=== PATIENT | female | born 1995 | race Caucasian/White ===

== ENCOUNTER 2019-11-10 16:23 | Outpatient (CLI) | payer OTHER ==
[~2019-11-10] VITALS: Ht 162.6 cm; Wt 88.1 kg
[2019-11-10 16:39] VITALS: BP 131/81
[2019-11-10] MEDS ORDERED: VIT PO (16:49)
[2019-11-10] MEDS ORDERED: MULTTAB20 PO (16:49)
[2019-11-10] MEDS ORDERED: MAGN400C PO (16:49)
--- NOTE | 2019-11-10 18:27 | IPNPDOC ---
Text Note Date of Service The patient was seen on 11/10/19. NOTE S: Few hours of feeling shaky and lightheaded. Good hydration and eating enough, per patient. Not overly hot. No chills. No cough or SOB. No N/V/D. No sick contacts. No palpatations. no ctx, VB, LOF. +FM. No headaches or visual changes. O: VSS WNL ABD: NT, gravid LE: NT, no edema SVE: closed, thick, high FHT: Cat 1, 130s, reactive, no decels, uterine irritability A/P: Fetus reassuring. No active labor. D/w patient that this could be from alone. However, she might be dehydrated, low sugar, viral or cardiac. VS,Fishbone, I+O VS, Fishbone, I+O Vital Signs Date Time Temp Pulse Resp B/P (MAP) Pulse Ox O2 Delivery O2 Flow Rate FiO2 11/10/19 16:39 99.0 92 18 131/81 (98) Meenakshi Claros MD Nov 10, 2019 18:27
[2019-11-10] MEDS ORDERED: FIOR1CAP PO (18:46)
== END 2019-11-10 18:00 | disposition home or self-care (01) ==
LOC: M LDO 16:23
PROVIDERS: ATTEND Obstetrics & Gynecology
DX: O26.893 Other specified pregnancy related conditions, third trimester (principal); Z3A.35 35 weeks gestation of pregnancy
CPT/HCPCS: 59025; 87081; G0378; G0463

== ENCOUNTER 2019-11-10 18:17 | Emergency (ER) | payer OTHER ==
[~2019-11-10] VITALS: Ht 162.6 cm; Wt 87.9 kg
[2019-11-10 18:17] VITALS: BP 131/75
[~2019-11-10 18:17] MED LIST: MAGN400C PO; MULTTAB20 PO; VIT PO
[2019-11-10] MEDS ORDERED: FIOR1CAP PO (18:46)
== END 2019-11-10 19:06 | disposition left against medical advice (07) ==
LOC: M ED 18:17
DX: Z53.21 Procedure and treatment not carried out due to patient leaving prior to being seen by health care provider (principal)

== ENCOUNTER 2019-11-26 11:13 | Inpatient (IN) | payer OTHER ==
[~2019-11-26] VITALS: Ht 162.6 cm; Wt 90.3 kg
[2019-11-26] VITALS (18 sets, daily range): BP systolic 125–151; BP diastolic 66–98
[~2019-11-26 11:13] MED LIST changes: +FIOR1CAP PO
[2019-11-26 12:34] LABS: HEMATOCRIT 36.4 % (36.0-47.0); HEMOGLOBIN 12.7 g/dl (12.0-15.5); MEAN CORPUSCULAR HEMOGLOBIN 31.1 pg (27.0-33.0); MEAN CORPUSCULAR HGB CONC 34.9 g/dl (32.0-36.5); PLATELET COUNT, AUTOMATED 181 10^3/uL (150-450); RED BLOOD COUNT 4.09 10^6/uL (4.00-5.40); WHITE BLOOD COUNT 11.3 10^3/uL (4.0-10.0)
[2019-11-26] MEDS ORDERED: TUMS500C PO (12:44)
[2019-11-26] MEDS ORDERED: GUAI1TAB15 PO (12:44)
[2019-11-26] MEDS ORDERED: PSEU30TA88 PO (12:44)
[2019-11-26 12:55] LABS: ALT/SGPT 16 U/L (12-78); BILIRUBIN,TOTAL 0.2 MG/DL (0.2-1.0); GLOMERULAR FILTRATION RATE > 60.0 (>60); LDH LACTATE DEHYDROGENASE 186 U/L (84-246); URIC ACID 7.5 MG/DL (2.6-6.0)
[2019-11-26 13:05] LABS: CREATININE,RANDOM URINE 38.1 MG/DL; TOTAL PROTEIN,RANDOM URINE 13.7 MG/DL (0.0-12.0)
[2019-11-26] MEDS ORDERED: miSOPROStol 25 MCG 1/4 TAB (S0191) PO ONE (15:00)
--- NOTE | 2019-11-26 17:16 | HPEPDOC ---
Obstetrical History & Physical General Date of Admission Nov 26, 2019 at 14:40 History of Present Illness S: Pili is a 24yo at 38wks gestation, EDC 10DEC2019 by LMP/1TUS, who is being admitted for IOL d/t Pre-Eclampsia. She reports +FM, denies LOF/VB/CTX. She reports a mild HUDSON, but has a hx of chronic HUDSON throughout this ; she denies RUQ pain or visual disturbances. GBS Negative, Varicella NI Excessive weight gain of 51lbs O Positive OB Hx: Primip Medical HUDSON: chronic HUDSON Surgical Hx: denies Social Hx: denies x3 Chief Complaint: Induction of labor Information Provided By: Patient Age: 24 : 1 Term: 0 Pre-term: 0 Abortions: 0 Livin Care Care: Good Care Dating Final EDC: Dec 10, 2019 Final EDC for Daily Update: Dec 10, 2019 Final EDC by: LMP Antepartum Course Height (inches): 64 Pre- weight (lbs.): 148 Admission Weight (lbs.): 199 Change in Weight (lbs.): 51 Past Medical History Past Obstetrical History : Past Obstetrical History: Primgravida Past Medical History Surgical History: Denies/None Family History Significant Family History: No pertinent family hx Social History Marital Status: Family situation: Spouse/partner home Psychosocial History: No pertinent psych hx * Smoker: non-smoker Alcohol: Denies Drugs: denies Imunizations Tdap status: current Allergies Coded Allergies: No Known Allergies (Unverified , 11/10/19) Medications Scheduled Butalb/Acetaminophen/Caffeine (Fioricet 50-300-40 mg Capsule) 1 Each Capsule, 1 CAP PO DAILY Magnesium Oxide (Magnesium) 400 Mg Capsule, 400 MG PO BID for constipation No122/Iron/Folic Acid ( Multi Tablet) 1 Each Tablet, 1 TAB PO DAILY [Vit B2] , 100 UNITS PO DAILY Scheduled PRN Calcium Carbonate (Tums) 200 Mg Tab.chew, 500 MG PO for HEARTBURN Pseudoephedrine HCl (Pseudoephedrine HCl) 30 Mg Tablet, 30 MG PO for CONGESTION Miscellaneous Medications Guaifen/Phenyleph/Acetaminophn (Tylenol Cold Head Congest Cplt) 1 Each Tablet, 1 EACH PO Physical Examination Physical Examination GENERAL: Alert and oriented times three. BREAST: . ABDOMEN: Gravid and non-tender to touch. FETUS: Is vertex (VTX) by sterile vaginal examination (SVE), fetus is vertex (VTX) by James. HEART RATE: Regular rate and rhythm. LUNGS: Observed nonlabored breathing EXTREMITIES: BLE 2+ edema. No clonus. Deep tendon reflexes + 1. Vital Signs/I&O O: VSS, afebrile, mild range Blood Pressures FHR 130s, moderate variability, + accels, no decels noted CTX: None VE: Closed/Long/High Vital Signs Date Time Temp Pulse Resp B/P (MAP) Pulse Ox O2 Delivery O2 Flow Rate FiO2 11/26/19 16:05 80 16 137/81 (99) 11/26/19 14:15 98.4 Laboratory Data 24H LABS Laboratory Tests 2 11/26/19 12:13: Nucleated Red Blood Cells % (auto) 0.0, Glomerular Filtration Rate > 60.0, Uric Acid 7.5H, Total Bilirubin 0.2, Aspartate Amino Transf (AST/SGOT) 23, Alanine Aminotransferase (ALT/SGPT) 16, Lactate Dehydrogenase 186 11/26/19 12:16: Urine Random Creatinine 38.1, Urine Random Total Protein 13.7H 11/26/19 14:44: Serology Scanned Report Hepatitis B Testing CBC/BMP Laboratory Tests 11/26/19 12:13 Pertinent Laboratoy Data Blood Type: O+ RBC Antibody Screen: Negative HIV: Negative Hepatitis B: Negative Rapid Plasma Reagin: Nonreactive Rubella: Immune Varicella: Nonreactive Chlamydia/Gonorrhea: Negative Group B Streptococcus: Negative Quad Screen Test: Declined Cystic Fibrosis: Negative Glucose Tolerance Test: 149 (3 hour WNL) Anatomy Ultrasound Ultrasound Date: Jul 25, 2019 Placenta Location: Posterior Normal Anatomy: Yes Placenta Previa: No Vaginal Examination Presentation: Cephalic presentation Assessment/Plan Assessment A: 24yo at 38 weeks with Pre-Eclampsia (mild range BPs, P/C ratio .35, uric acid 7.5), Category I FHT, GBS Negative, O Positive. Plan P: Admit to LND, consent for Induction methods, labor, delivery, recovery and , risk for C/S or operative vaginal delivery; pain management options. IV start, admission and Pre-E labs drawn Close monitoring of BPs and s/sx of worsening Pre-E CEFM x2, can be intermittent after 1st hour of cytotec Start IOL with 25mcg PO cytotec Regular diet at this time. Consult with OB as indicated Anticipate JULIANNE SALDIVAR CNM Nov 26, 2019 17:16
[2019-11-26] MEDS ORDERED: miSOPROStol 25 MCG 1/4 TAB (S0191) PO SCH (19:00)
[2019-11-26] MEDS ORDERED: miSOPROStol 50 MCG 1/2 TAB (S0191) PO SCH (19:00)
--- NOTE | 2019-11-26 21:02 | IPNPDOC ---
Obstetrical Progress Note Date of Service Nov 26, 2019 Subjective Strip note. Objective Vital Signs Date Time Temp Pulse Resp B/P (MAP) Pulse Ox O2 Delivery O2 Flow Rate FiO2 11/26/19 20:02 78 16 125/75 (92) 11/26/19 19:08 98.1 98 Room Air Assessment Heart Rate (FHR): 130 Variability: Moderate Accelerations: Positive Decelerations: None Heart Rate Tracing: Category I Tocometer Contractions: Yes Frequency: irregular Assessment and Plan Status: Reassuring Additional Comments RUBEN tracing, reactive. Irregular contractions. DLFB in place. Per report contractions not felt other than occasional cramps by patient. No si/sx of pre- e. Will continue with second dose of cytotec 25mcg PO and reassess in 4h or sooner if clinically indicated for possible DLFB placement. EDWIN ELISE DO Nov 26, 2019 21:02
[2019-11-26] MEDS: ACETAMINOPHEN 500 MG TAB PO PRN (21:56)
[2019-11-27] VITALS (49 sets, daily range): BP systolic 105–180; BP diastolic 56–101
[2019-11-27] MEDS ORDERED: miSOPROStol 50 MCG 1/2 TAB (S0191) PV ONE (00:30)
--- NOTE | 2019-11-27 01:44 | IPNPDOC ---
Obstetrical Progress Note Date of Service Nov 27, 2019 Subjective To room for interval assessment. Denied n/v/d, cp, sob, masterson, visual changes, f/c. Objective Vital Signs Date Time Temp Pulse Resp B/P (MAP) Pulse Ox O2 Delivery O2 Flow Rate FiO2 11/27/19 01:07 68 18 133/86 (102) 11/26/19 23:03 98.0 11/26/19 19:08 98 Room Air Assessment Heart Rate (FHR): 135 Variability: Moderate Accelerations: Positive Decelerations: None Heart Rate Tracing: Category I Tocometer Contractions: Yes Frequency: irregular Sterile Vaginal Examination Dilation: 1cm Effacement (%): 50% Station: -3 Cervical Consistency: Medium Cervical Position: Anterior Postion/Presentation: Cephalic presentation (by exam) Assessment and Plan Status: Reassuring Anticipate: Vaginal Delivery Additional Comments CAT I tracing, reactive. Irregular contractions reported not very painful by patient. VS normal. SVE /50/-3. DLFB placed. Will continue IOL with DLFB/cytotec until cytotec 4 doses or DLFB comes out then will transition to pitocin. EDWIN ELISE DO Nov 27, 2019 01:44
[2019-11-27] MEDS ORDERED: miSOPROStol 50 MCG 1/2 TAB (S0191) PO ONE (05:00)
[2019-11-27] MEDS ORDERED: OXYTOCIN DRIP 30 UNITS in IV 1 EA IV SCH (09:00)
[2019-11-27] MEDS: LR 1,000 ML IV SCH ×2 (09:56→22:46)
--- NOTE | 2019-11-27 09:59 | IPNPDOC ---
Obstetrical Progress Note Date of Service Nov 27, 2019 Subjective Received report during sign out from Dr. Boykin. S: Pili is a 24yo at 38+1wks previously admitted on 11/25 for Pre- Eclampsia. She currently reports +FM, denies LOF/VB. She does feel mild contractions that are tolerable. She reports a HUDSON last night that resolved with tylenol. She denies a HUDSON/Visual disturbances/RUQ pain at this time. She is now s/p 4x doses of cytotec and has had a CRB in place since 0145 this AM. She has no concerns at this time. Objective O: VSS, afebrile, normotensive at this time FHR 140s, moderate variability, + accels, no decels noted CTX by TOCO q 2-3 minutes VE deferred Vital Signs Date Time Temp Pulse Resp B/P (MAP) Pulse Ox O2 Delivery O2 Flow Rate FiO2 11/27/19 08:03 74 16 133/81 (98) 11/27/19 06:49 98.0 11/26/19 19:08 98 Room Air Assessment Heart Rate Tracing: Category I Assessment and Plan Status: Reassuring Group B Streptococcus: Negative Anticipate: Vaginal Delivery Additional Comments A: 24yo at 38+1wks undergoing IOL d/t Pre-Eclampsia. Category I FHT. CRB in place at this time. P: Allow pt to eat breakfast and shower Evaluate CRB after shower Plan to start pitocin at low dose x4 hours if CRB is still in place; if fall out, then can start pitocin per low dose protocol and titrate up until contractions adequate CEFM x2 Close monitoring of maternal/ status Close monitoring of BP PO and IV hydration Consult with OB if indicated Anticipate JULIANNE WATTS CNM Nov 27, 2019 09:59
--- NOTE | 2019-11-27 14:17 | IPNPDOC ---
Obstetrical Progress Note Date of Service Nov 27, 2019 Subjective S: Pili is a 24yo undergoing IOL for Pre-E. Her pitocin was started at 0945 this morning and she is tolerating contractions well. Her CRB is due to be removed by 1345 today. She consents for cervical exam and CRB evaluation. Objective O: VSS, afebrile, currently normotensive FHR 140s, moderate variability, no accels or decels CTX by TOCO q2.5-3 Pitocin running at 6mu/min CRB was removed with gentle traction VE: 3.5/60/-3, posterior, soft Vital Signs Date Time Temp Pulse Resp B/P (MAP) Pulse Ox O2 Delivery O2 Flow Rate FiO2 11/27/19 11:55 80 16 122/75 (91) 11/27/19 10:55 98.0 11/26/19 19:08 98 Room Air Assessment Heart Rate Tracing: Category I Sterile Vaginal Examination Postion/Presentation: Cephalic presentation Assessment and Plan Status: Reassuring Group B Streptococcus: Negative Anticipate: Vaginal Delivery Additional Comments A: 24yo at 38+1wks, IOL for Pre-E, stable BPs, Category I FHT. Pitocin at 6mu/min. P: CEFM x2 PO and IV hydration Continue pitocin per low dose protocol reexamine in 4 hours, consider AROM if head in lower station Can have IV analgesia for pain control; epidural when in active labor Consult with OB if indicated Anticipate JULIANNE SALDIVAR CNM Nov 27, 2019 14:17
[2019-11-27] MEDS ORDERED: FENTANYL 2MCG/ML ROPIVACAINE 0.2% IN 0.9% NACL 100ML IVBAG As Ordered ONE (19:11)
[2019-11-27] MEDS ORDERED: LR 800 ML IV ONE (19:15)
[2019-11-27 19:38] LABS: HEMATOCRIT 36.2 % (36.0-47.0); HEMOGLOBIN 12.5 g/dl (12.0-15.5); MEAN CORPUSCULAR HEMOGLOBIN 30.7 pg (27.0-33.0); MEAN CORPUSCULAR HGB CONC 34.5 g/dl (32.0-36.5); MEAN CORPUSCULAR VOLUME 88.9 fl (80.0-96.0); PLATELET COUNT, AUTOMATED 167 10^3/uL (150-450); RED BLOOD COUNT 4.07 10^6/uL (4.00-5.40); WHITE BLOOD COUNT 11.4 10^3/uL (4.0-10.0)
[2019-11-27] MEDS ORDERED: EPIDURAL/PCA KEYS XX PRN (21:00)
[2019-11-27] MEDS ORDERED: NALOXONE INJ 0.4MG/1ML VIAL (J2310 PER 1MG) IV PRN (21:00)
[2019-11-27] MEDS ORDERED: ePHEDrine SULFATE 25 MG/5 ML(5MG/ML) SYRINGE IV PRN (21:00)
[2019-11-27] MEDS ORDERED: REFRIGERATOR IV KEYS XX PRN (21:00)
[2019-11-27] MEDS ORDERED: ONDANSETRON 4MG/2ML VIAL IV PRN (21:00)
[2019-11-27] MEDS ORDERED: LACTATED RINGER'S 1000 ML IV PRN (21:00)
[2019-11-27] MEDS ORDERED: diphenhydrAMINE 50MG/ML VIAL (J1200) IV PRN (21:00)
[2019-11-27] MEDS ORDERED: FENTANYL/ROPIVACAINE/NACL BAG 100 ML EPIDURAL SCH (21:00)
[2019-11-27] MEDS ORDERED: EPIDURAL COMMENT XX SCH (21:00)
[2019-11-28] VITALS (14 sets, daily range): BP systolic 128–191; BP diastolic 64–110
[2019-11-28] MEDS ORDERED: ANUSOL HC CREAM 30GM TOP PRN (02:30)
[2019-11-28] MEDS ORDERED: ACETAMINOPHEN TAB 650MG DOSE (2X325MG) PO PRN (02:30)
[2019-11-28] MEDS ORDERED: ACETAMINOPHEN 500 MG TAB PO PRN (02:30)
[2019-11-28] MEDS ORDERED: OXYTOCIN DRIP 30 UNITS in IV 1 EA IV ONE (02:30)
[2019-11-28] MEDS ORDERED: DOCUSATE SODIUM 100 MG CAP PO PRN (02:30)
[2019-11-28] MEDS ORDERED: MOM 30ML SUSPENSION UDC PO PRN (02:30)
[2019-11-28] MEDS ORDERED: RHOGAM 300 MCG (1500 IU) INJ (J2790) IM SCH (02:30)
[2019-11-28] MEDS ORDERED: MEASLES,MUMPS,RUBELLA VACCINE INJ (MMR-II) (90707) SC SCH (02:30)
[2019-11-28] MEDS ORDERED: OXYTOCIN INJ 10 UNITS/ML VIAL (J2590) IV ONE (02:30)
[2019-11-28] MEDS ORDERED: IBUPROFEN 600MG TAB PO PRN (02:30)
[2019-11-28] MEDS ORDERED: METHYLERGONOVINE MALEATE 0.2 MG TAB PO PRN (02:30)
[2019-11-28] MEDS ORDERED: DIBUCAINE 1% OINTMENT 30GM TOP PRN (02:30)
[2019-11-28 02:37] LABS: CORD GAS ABE V -7.4; CORD GAS HCO3 V 18.2 MEQ/L; CORD GAS O2 SAT V 75.8 %; CORD GAS PCO2 V 37.5 mmHg; CORD GAS PH V 7.304 UNITS; CORD GAS PO2 V 35.2 mmHg; CORD GAS SBC V 18.1 MEQ/L; CORD GAS TCO2 V 19.4 MEQ/L
[2019-11-28 02:39] LABS: CORD GAS ABE A -7.4; CORD GAS HCO3 A 22.5 MEQ/L; CORD GAS O2 SAT A 27.1 %; CORD GAS PH A 7.157 UNITS; CORD GAS PO2 A 18.5 mmHg; CORD GAS TCO2 A 24.5 MEQ/L
[2019-11-28] MEDS: IBUPROFEN 800 MG TAB PO PRN ×3 (03:35→21:59)
[2019-11-28] MEDS ORDERED: OXYTOCIN INJ 10 UNITS/ML VIAL (J2590) As Ordered ONE (07:34)
[2019-11-28] MEDS: PRENATAL VITAMINS CHEWABLE TABLET PO SCH (08:25)
[2019-11-28] MEDS: ACETAMINOPHEN 500 MG TAB PO PRN ×2 (08:26→17:11)
[2019-11-28] MEDS ORDERED: INFLUENZA QUADRIVALENT PF VACCINE 0.5ML SYRINGE IM ONE (09:00)
[2019-11-29 02:07] VITALS: BP 131/68
[2019-11-29] MEDS: ACETAMINOPHEN 500 MG TAB PO PRN (05:26)
[2019-11-29 06:05] VITALS: BP 130/71
[2019-11-29] MEDS: PRENATAL VITAMINS CHEWABLE TABLET PO SCH (08:08)
[2019-11-29] MEDS: IBUPROFEN 800 MG TAB PO PRN (08:09)
[2019-11-29 08:27] LABS: HEMOGLOBIN 10.8 g/dl (12.0-15.5); MEAN CORPUSCULAR HGB CONC 32.7 g/dl (32.0-36.5); MEAN CORPUSCULAR VOLUME 91.7 fl (80.0-96.0); PLATELET COUNT, AUTOMATED 152 10^3/uL (150-450); WHITE BLOOD COUNT 10.8 10^3/uL (4.0-10.0)
[2019-11-29 10:00] VITALS: BP 129/77
--- NOTE | 2019-11-29 12:57 | IPNPDOC ---
Progress Note Date of Service: Nov 29, 2019 Day#: 2 Progress Note SUBJECT: Pili is a 24-year-old 1 now Para 1 status post uncomplicated spontaneous vaginal delivery at 38wks weeks after IOL for preeclampsia. She has been ambulating, voiding spontaneously without issue and tolerating regular diet. She and reports it is going well. Reports lochia is decreasing. Reports pain is well-controlled on oral pain meds. OBJECTIVE: VITAL SIGNS: Within normal limits, afebrile. Alert and oriented times three. No exaggerated respiratory effort appreciated Well-perfused Abdomen: Fundus firm at U-2. Soft, NTTP. Scant lochia on peripad Extremities without edema, no calf tenderness ASSESSMENT: Pili is a 24-year-old 1 now Para 1 status post uncomplicated spontaneous vaginal delivery at 38wks weeks after IOL for preeclampsia. Patient doing well on day 2. Vitals within normal limits, afebrile, hemodynamically stable with no evidence of infection. PLAN: 1. Discharge to home today. 2. Continue current pain mgmt. 3. Encourage breast feeding and ambulation. 4. Encourage regular diet as tolerated 5. BP check appointment in 1 week. 6. Discussed return precautions at length. VS, I&O, 24H, Fishbone Vital Signs/I&O Vital Signs Date Time Temp Pulse Resp B/P (MAP) Pulse Ox O2 Delivery O2 Flow Rate FiO2 11/29/19 10:00 98.2 90 16 129/77 (94) Room Air 11/29/19 06:05 98 I&O- Last 24 Hours up to 6 AM 11/29/19 06:00 Output Total 400 ml Balance -400 ml Laboratory Data 24H LABS Laboratory Tests 2 11/29/19 08:01: Nucleated Red Blood Cells % (auto) 0.0 CBC/BMP Laboratory Tests 11/29/19 08:01 ROSARIO QUINTANA DO Nov 29, 2019 12:57
--- NOTE | 2019-11-30 09:34 | IPN ---
DATE: 11/27/2019 TIME: 2200 hours This lady is a 24-year-old 1 at 38 weeks of gestation admitted for induction of labor because of preeclampsia. She had some moderate show and therefore on examination was found to have markedly changed her cervix, she was now 8 cm, vertex is well applied to the cervix, almost 90% effaced, some caput was noted. There was no evidence of amniotic fluid. Timing of ruptured membranes is uncertain. She is GBS negative. She is afebrile. She is having good contractions, having a category 1 strip. Blood pressures are running 130/92, 109/57. She is feeling some rectal pressure but not anything significant. She did have a high epidural and on viewing the strip she has some moderate variability, baseline is about 130-140, accelerations were noted, contractions were spaced however are subsequently coming back since the high epidural is wearing down. Patient has no difficulty in breathing but could not feel anything from her T10 down to her toes. We anticipate return of feeling secondary to the high epidural and we anticipate more progress. Patient is safe to proceed. KATHY
--- NOTE | 2019-11-30 09:39 | DN ---
DATE OF DELIVERY: 11/28/2019. DESCRIPTION OF DELIVERY: This lady is a 24-year-old, 1, now para 1, admitted for induction of labor at 38 weeks of gestation with a history of preeclampsia and chronic headaches. She had an epidural in place. She had a spontaneous vaginal delivery of a live male , weighing 7 pounds 6 ounces (3350 grams). Apgars of 7 and 9 at one and five minutes respectively. There was a cord around the neck times one loose. Baby had terminal meconium at delivery. Had spontaneous delivery of the placenta, three vessels, membranes and tissues intact. The uterus contracted well on Pitocin. Perineum was intact. The vaginal area was just bruised. No evidence of active bleeding. Examination of anterior, posterior and lateral castillo complete. Sphincter was tight. Patient and baby tolerated the procedure well. KATHY
--- NOTE | 2019-12-13 15:33 | IPN ---
DATE: 11/28/2019 This patient requested circumcision of their male . After discussing the risks and benefits of circumcision, the medical to non-medical indications, the penile block, aftercare, and bleeding, signed the consent form, all questions were answered, 20 minute discussion. We await clearance by the seed analysis laboratory assistant. KATHY
== END 2019-11-29 13:20 | disposition home or self-care (01) | DRG 807 ==
LOC: M LDO 11:13 → M LDI 14:40 → M OBS 11-28 04:05
PROVIDERS: ADMIT Registered Nurse Maternal Newborn; ATTEND Obstetrics & Gynecology
PROC: 3E0P7GC Introduction of Other Therapeutic Substance into Female Reproductive, Via Natural or Artificial Opening (ICD-10-PCS; 2019-11-26)
PROC: 10E0XZZ Delivery of Products of Conception, External Approach (ICD-10-PCS; principal; 2019-11-28)
DX: O14.04 Mild to moderate pre-eclampsia, complicating childbirth (principal); Z37.0 Single live birth; Z3A.38 38 weeks gestation of pregnancy; O69.1XX0 Labor and delivery complicated by cord around neck, with compression, not applicable or unspecified

== ENCOUNTER → 2021-11-30 | Outpatient (CLI) | payer OTHER ==
[~2021-11-30] MED LIST changes: +GUAI1TAB15 PO; +PSEU30TA88 PO; +TUMS500C PO
[2021-12-01 14:48] LABS: HEMATOCRIT 33.8 % (36.0-47.0); HEMOGLOBIN 12.1 g/dl (12.0-15.5); MEAN CORPUSCULAR HEMOGLOBIN 32.4 pg (27.0-33.0); MEAN CORPUSCULAR HGB CONC 35.8 g/dl (32.0-36.5); MEAN CORPUSCULAR VOLUME 90.6 fl (80.0-96.0); PLATELET COUNT, AUTOMATED 259 10^3/uL (150-450); RED BLOOD COUNT 3.73 10^6/uL (4.00-5.40); WHITE BLOOD COUNT 9.2 10^3/uL (4.0-10.0)
[2021-12-01 14:49] LABS: ALT/SGPT 14 IU/L (0-32); CREATININE FOR GFR 0.58 MG/DL (0.55-1.30); GLOMERULAR FILTRATION RATE > 60.0 (>60); LDH LACTATE DEHYDROGENASE 163 U/L (84-246); TOTAL PROTEIN,RANDOM URINE 8.7 MG/DL (0.0-12.0)
[2021-12-01 14:50] LABS: BILIRUBIN,TOTAL 0.4 MG/DL (0.2-1.0); URIC ACID 3.7 MG/DL (2.6-6.0)
== END ==
LOC: M LAB 16:52
PROVIDERS: ATTEND Obstetrics & Gynecology
DX: O14.90 Unspecified pre-eclampsia, unspecified trimester (principal)

== ENCOUNTER 2022-02-25 10:14 | Outpatient (CLI) | payer OTHER ==
[~2022-02-25] VITALS: Ht 162.6 cm; Wt 82.7 kg
[2022-02-25] MEDS ORDERED: ACET325C5 PO (10:26)
[2022-02-25 10:37] VITALS: BP 125/83
[2022-02-25 10:55] VITALS: BP 122/83
[2022-02-25] MEDS ORDERED: ACETAMINOPHEN 500 MG TAB PO ONE (11:15)
[2022-02-25 11:38] LABS: HEMATOCRIT 31.9 % (36.0-47.0); MEAN CORPUSCULAR HEMOGLOBIN 30.1 pg (27.0-33.0); MEAN CORPUSCULAR HGB CONC 34.5 g/dl (32.0-36.5); MEAN CORPUSCULAR VOLUME 87.4 fl (80.0-96.0); PLATELET COUNT, AUTOMATED 206 10^3/uL (150-450); RED BLOOD COUNT 3.65 10^6/uL (4.00-5.40); WHITE BLOOD COUNT 10.7 10^3/uL (4.0-10.0)
[2022-02-25 12:00] LABS: TOTAL PROTEIN,RANDOM URINE 10.9 MG/DL (0.0-14.0)
[2022-02-25 12:00] LABS: URIC ACID 5.7 MG/DL (3.1-7.8)
[2022-02-25 12:04] LABS: ALBUMIN 2.7 G/DL (3.2-5.2); ALKALINE PHOSPHATASE 104 U/L (46-116); ALT/SGPT 9 U/L (7.0-40); AST/SGOT 14 U/L (<34); BILIRUBIN,TOTAL 0.5 MG/DL (0.3-1.2); BLOOD UREA NITROGEN 8 MG/DL (9-23); CARBON DIOXIDE LEVEL 22 MMOL/L (20-31); CHLORIDE LEVEL 103 MMOL/L (98-107); CREATININE FOR GFR 0.59 MG/DL (0.55-1.30); GLOMERULAR FILTRATION RATE > 60.0 (>60); GLUCOSE, FASTING 68 MG/DL (60-100); POTASSIUM SERUM 4.2 MMOL/L (3.5-5.1); SODIUM LEVEL 136 MMOL/L (136-145); TOTAL PROTEIN 5.7 G/DL (5.7-8.2)
[2022-02-25 12:05] LABS: CREATININE,RANDOM URINE 55.9 MG/DL
[2022-02-25 12:14] VITALS: BP 116/75
[2022-02-26 19:46] LABS: CREATININE 24 HOUR, URINE 1833.4 MG/24HR (600-1800); CREATININE, URINE 35.6 MG/DL
== END 2022-02-25 13:15 | disposition home or self-care (01) ==
LOC: M LDO 10:14
PROVIDERS: ATTEND Registered Nurse
DX: O26.893 Other specified pregnancy related conditions, third trimester (principal); R51.9 Headache, unspecified; O12.13 Gestational proteinuria, third trimester; Z3A.36 36 weeks gestation of pregnancy
CPT/HCPCS: 36415; 59025; 80053; 81050; 82570; 84156; 84550; 85027; 93005; G0378; G0463

== ENCOUNTER 2022-03-02 14:25 | Outpatient (CLI) | payer OTHER ==
[~2022-03-02] VITALS: Ht 162.6 cm; Wt 84.1 kg
[~2022-03-02 14:25] MED LIST changes: +ACET325C5 PO
[2022-03-02 14:44] VITALS: BP 130/81
[2022-03-02 15:01] VITALS: BP 126/82
[2022-03-02 15:16] VITALS: BP 134/90
[2022-03-02] MEDS ORDERED: diphenhydrAMINE 50MG CAP PO ONE (15:30)
[2022-03-02] MEDS ORDERED: ACETAMINOPHEN 500 MG TAB PO ONE (15:30)
[2022-03-02] MEDS ORDERED: METOCLOPRAMIDE 10MG TAB PO ONE (15:30)
[2022-03-02 15:31] VITALS: BP 138/73
[2022-03-02 15:31] LABS: HEMATOCRIT 32.5 % (36.0-47.0); MEAN CORPUSCULAR HEMOGLOBIN 29.5 pg (27.0-33.0); MEAN CORPUSCULAR HGB CONC 33.8 g/dl (32.0-36.5); MEAN CORPUSCULAR VOLUME 87.1 fl (80.0-96.0); PLATELET COUNT, AUTOMATED 238 10^3/uL (150-450); RED BLOOD COUNT 3.73 10^6/uL (4.00-5.40); WHITE BLOOD COUNT 10.9 10^3/uL (4.0-10.0)
[2022-03-02 15:46] VITALS: BP 121/79
[2022-03-02 15:58] LABS: URIC ACID 5.8 MG/DL (3.1-7.8)
[2022-03-02 16:01] LABS: ALBUMIN 2.7 G/DL (3.2-5.2); ALKALINE PHOSPHATASE 113 U/L (46-116); ALT/SGPT 9 U/L (7.0-40); AST/SGOT 14 U/L (<34); BILIRUBIN,TOTAL 0.3 MG/DL (0.3-1.2); BLOOD UREA NITROGEN 6 MG/DL (9-23); CALCIUM LEVEL 8.7 MG/DL (8.5-10.1); CARBON DIOXIDE LEVEL 24 MMOL/L (20-31); CHLORIDE LEVEL 105 MMOL/L (98-107); CREATININE FOR GFR 0.61 MG/DL (0.55-1.30); GLOMERULAR FILTRATION RATE > 60.0 (>60); GLUCOSE, FASTING 67 MG/DL (60-100); POTASSIUM SERUM 4.2 MMOL/L (3.5-5.1); SODIUM LEVEL 138 MMOL/L (136-145); TOTAL PROTEIN 5.8 G/DL (5.7-8.2)
[2022-03-02 17:44] VITALS: BP 118/60
[2022-03-02 17:46] LABS: CREATININE,RANDOM URINE < 13.0 MG/DL
[2022-03-02 17:49] LABS: TOTAL PROTEIN,RANDOM URINE < 6.0 MG/DL (0.0-14.0)
== END 2022-03-02 18:15 | disposition home or self-care (01) ==
LOC: M LDO 14:25
PROVIDERS: ATTEND Registered Nurse
DX: O26.893 Other specified pregnancy related conditions, third trimester (principal); R51.9 Headache, unspecified; R20.0 Anesthesia of skin; O99.893 Other specified diseases and conditions complicating puerperium; H53.8 Other visual disturbances; Z3A.37 37 weeks gestation of pregnancy
CPT/HCPCS: 36415; 59025; 80053; 82570; 84156; 84550; 85027; G0378; G0463

== ENCOUNTER 2022-03-10 00:37 | Inpatient (IN) | payer OTHER ==
[~2022-03-10] VITALS: Ht 162.6 cm; Wt 85.0 kg
[2022-03-10] VITALS (38 sets, daily range): BP systolic 88–148; BP diastolic 49–105
[2022-03-10] MEDS ORDERED: OXYTOCIN INJ 10UNITS/ML 1ML VIAL IM PRN (01:05)
[2022-03-10] MEDS ORDERED: METHYLERGONOVINE MALEATE 0.2 MG/ML VIAL (J2210) IM PRN (01:05)
[2022-03-10] MEDS ORDERED: LACTATED RINGER'S 1000 ML IV STA (01:05)
[2022-03-10] MEDS ORDERED: TRANEXAMIC ACID INJection 1,000 MG in NS 100 ML IV PRN (01:05)
[2022-03-10] MEDS ORDERED: LIDOCAINE 1% MDV 20ML VIAL INFIL PRN (01:05)
[2022-03-10] MEDS ORDERED: OXYTOCIN DRIP 30 UNITS in IV 1 EA IV PRN ×6 (01:05)
[2022-03-10 01:51] LABS: BASO # 0.1 10^3/uL (0.0-0.2); BASO % 0.6 % (0.0-1.0); EOS # 2.2 10^3/uL (0.0-0.5); EOS % 14.6 % (0.0-3.0); HEMATOCRIT 34.5 % (36.0-47.0); HEMOGLOBIN 11.4 g/dl (12.0-15.5); LYMPH # 3.7 10^3/uL (1.5-5.0); LYMPH % 24.8 % (24.0-44.0); MEAN CORPUSCULAR HEMOGLOBIN 28.6 pg (27.0-33.0); MEAN CORPUSCULAR VOLUME 86.5 fl (80.0-96.0); MONO # 0.7 10^3/uL (0.0-0.8); MONO % 4.8 % (2.0-8.0); NEUTROPHILS # 8.2 10^3/uL (1.5-8.5); NEUTROPHILS % 54.7 % (36.0-66.0); PLATELET COUNT, AUTOMATED 235 10^3/uL (150-450); RED BLOOD COUNT 3.99 10^6/uL (4.00-5.40); WHITE BLOOD COUNT 14.9 10^3/uL (4.0-10.0)
[2022-03-10 02:05] LABS: LDH LACTATE DEHYDROGENASE 186 U/L (120-246)
[2022-03-10 02:06] LABS: ALT/SGPT 9 U/L (7.0-40); AST/SGOT 18 U/L (<34); BILIRUBIN,TOTAL 0.5 MG/DL (0.3-1.2); CREATININE FOR GFR 0.59 MG/DL (0.55-1.30); GLOMERULAR FILTRATION RATE > 60.0 (>60)
[2022-03-10 02:17] LABS: TOTAL PROTEIN,RANDOM URINE 28.2 MG/DL (0.0-14.0)
[2022-03-10 02:22] LABS: CREATININE,RANDOM URINE 15.6 MG/DL
[2022-03-10] MEDS ORDERED: ONDANSETRON 4MG 2ML VIAL IV PRN (02:30)
[2022-03-10] MEDS ORDERED: NALOXONE INJ 0.4MG/1ML VIAL IV PRN (02:30)
[2022-03-10] MEDS ORDERED: LR 500 ML IV PRN (02:30)
[2022-03-10] MEDS ORDERED: EPIDURAL/PCA KEYS XX PRN (02:30)
[2022-03-10] MEDS ORDERED: diphenhydrAMINE 50MG/ML VIAL IV PRN (02:30)
[2022-03-10] MEDS ORDERED: ePHEDrine SULFATE 25 MG/5 ML(5MG/ML) SYRINGE IVP PRN (02:30)
[2022-03-10] MEDS ORDERED: FENTANYL 2MCG/ML ROPIVACAINE 0.2% IN 0.9% NACL 100ML IVBAG As Ordered ONE (02:34)
[2022-03-10] MEDS: FENTANYL/ROPIVACAINE/NACL BAG 100 ML EPIDURAL SCH ×2 (03:35→12:30)
[2022-03-10 05:28] LABS: URIC ACID 5.9 MG/DL (3.1-7.8)
[2022-03-10] MEDS: LR 1,000 ML IV SCH ×2 (07:44→10:45)
[2022-03-10] MEDS: PRENATAL VITAMINS CHEWABLE TABLET PO SCH (09:00)
[2022-03-10] MEDS ORDERED: OXYTOCIN DRIP 30 UNITS in IV 1 EA IV SCH (10:10)
[2022-03-10] MEDS ORDERED: LR 1,000 ML IV SCH (10:10)
[2022-03-10] MEDS: CALCIUM CARBONATE 500 MG CHEW U/D PO SCH ×3 (10:44→20:43)
[2022-03-10] MEDS ORDERED: DOCUSATE SODIUM 100MG CAPSULE PO PRN (13:00)
[2022-03-10] MEDS ORDERED: DIBUCAINE 1% OINTMENT 30GM TOP PRN (13:00)
[2022-03-10] MEDS ORDERED: RHOGAM 300MCG (1500IU) INJ IM SCH (13:00)
[2022-03-10] MEDS: ACETAMINOPHEN TAB 650MG DOSE (2X325MG) PO PRN ×2 (13:30→20:39)
[2022-03-10] MEDS: IBUPROFEN 800 MG TAB PO PRN ×2 (13:30→23:03)
[2022-03-11] MEDS ORDERED: BACLOFEN 10 MG TAB PO ONE (00:30)
[2022-03-11 05:45] VITALS: BP 116/64
[2022-03-11] MEDS ORDERED: BACLOFEN 10 MG TAB PO SCH (09:00)
[2022-03-11] MEDS: CALCIUM CARBONATE 500 MG CHEW U/D PO SCH (09:43)
[2022-03-11] MEDS: PRENATAL VITAMINS CHEWABLE TABLET PO SCH (09:43)
[2022-03-11] MEDS: ACETAMINOPHEN TAB 650MG DOSE (2X325MG) PO PRN (12:34)
[2022-03-12] MEDS ORDERED: MEASLES,MUMPS,RUBELLA VACCINE INJ (MMR-II) SC.IMMUN ONE (09:00)
== END 2022-03-11 15:05 | disposition home or self-care (01) | DRG 807 ==
LOC: M LDO 00:37 → M LDI 01:05 → M OBS 14:22
PROVIDERS: ADMIT Obstetrics & Gynecology; ATTEND Registered Nurse
PROC: 10E0XZZ Delivery of Products of Conception, External Approach (ICD-10-PCS; principal; 2022-03-10)
DX: O14.04 Mild to moderate pre-eclampsia, complicating childbirth (principal); Z37.0 Single live birth; Z3A.38 38 weeks gestation of pregnancy; O69.3XX0 Labor and delivery complicated by short cord, not applicable or unspecified

== ENCOUNTER 2023-09-21 11:38 | Emergency (ER) | payer OTHER ==
[~2023-09-21] VITALS: Ht 162.6 cm; Wt 69.1 kg
[2023-09-21 12:55] LABS: BASO % 0.5 % (0.0-1.0); EOS % 0.4 % (0.0-3.0); HEMATOCRIT 38.7 % (36.0-47.0); HEMOGLOBIN 13.4 g/dl (12.0-15.5); LYMPH # 2.4 10^3/uL (1.5-5.0); LYMPH % 27.9 % (24.0-44.0); MEAN CORPUSCULAR HEMOGLOBIN 29.8 pg (27.0-33.0); MEAN CORPUSCULAR HGB CONC 34.6 g/dl (32.0-36.5); MEAN CORPUSCULAR VOLUME 86.2 fl (80.0-96.0); MONO # 0.4 10^3/uL (0.0-0.8); MONO % 4.9 % (2.0-8.0); NEUTROPHILS # 5.6 10^3/uL (1.5-8.5); NEUTROPHILS % 65.2 % (36.0-66.0); PLATELET COUNT, AUTOMATED 238 10^3/uL (150-450); RED BLOOD COUNT 4.49 10^6/uL (4.00-5.40); WHITE BLOOD COUNT 8.5 10^3/uL (4.0-10.0)
[2023-09-21 13:24] LABS: LIPASE 34 U/L (12-53)
[2023-09-21 13:26] LABS: ALBUMIN 3.5 G/DL (3.2-5.2); ALKALINE PHOSPHATASE 61 U/L (46-116); ALT/SGPT 14 U/L (7.0-40); AST/SGOT 16 U/L (<34); BILIRUBIN,DIRECT 0.1 MG/DL (<0.4); BILIRUBIN,TOTAL 0.5 MG/DL (0.3-1.2); BLOOD UREA NITROGEN 8 MG/DL (9-23); CALCIUM LEVEL 8.5 MG/DL (8.5-10.1); CARBON DIOXIDE LEVEL 25 MMOL/L (20-31); CHLORIDE LEVEL 106 MMOL/L (98-107); CREATININE FOR GFR 0.61 MG/DL (0.55-1.30); GLOMERULAR FILTRATION RATE > 60.0 (>60); GLUCOSE, FASTING 80 MG/DL (60-100); POTASSIUM SERUM 3.5 MMOL/L (3.5-5.1); SODIUM LEVEL 137 MMOL/L (136-145); TOTAL PROTEIN 6.7 G/DL (5.7-8.2)
[2023-09-21] MEDS ORDERED: PEPC1TAB5 PO (14:29)
[2023-09-21] MEDS ORDERED: ONDA-282 PO (14:29)
[2023-09-21 14:41] VITALS: BP 118/67; TEMP 98.4; O2SAT 98
== END 2023-09-21 14:42 | disposition home or self-care (01) ==
LOC: M ED 11:38
DX: O99.619 Diseases of the digestive system complicating pregnancy, unspecified trimester (principal); Z3A.00 Weeks of gestation of pregnancy not specified; Z79.1 Long term (current) use of non-steroidal anti-inflammatories (NSAID); Z79.810 Long term (current) use of selective estrogen receptor modulators (SERMs); Z79.899 Other long term (current) drug therapy

== ENCOUNTER → 2023-09-29 | Outpatient (CLI) | payer OTHER ==
[~2023-09-29] MED LIST changes: +ONDA-282 PO; +PEPC1TAB5 PO
[2023-09-29 14:06] LABS: HEMATOCRIT 37.4 % (36.0-47.0); MEAN CORPUSCULAR HEMOGLOBIN 30.2 pg (27.0-33.0); MEAN CORPUSCULAR HGB CONC 34.8 g/dl (32.0-36.5); PLATELET COUNT, AUTOMATED 271 10^3/uL (150-450); WHITE BLOOD COUNT 7.9 10^3/uL (4.0-10.0)
[2023-09-29 14:07] LABS: URIC ACID 4.9 MG/DL (3.1-7.8)
[2023-09-29 14:10] LABS: LDH LACTATE DEHYDROGENASE 156 U/L (120-246)
[2023-09-29 14:11] LABS: ALT/SGPT 10 U/L (7.0-40); AST/SGOT < 8 U/L (<34); BILIRUBIN,TOTAL 0.8 MG/DL (0.3-1.2); CREATININE FOR GFR 0.65 MG/DL (0.55-1.30); GLOMERULAR FILTRATION RATE > 60.0 (>60)
[2023-09-29 14:32] LABS: CREATININE,RANDOM URINE 52.6 MG/DL
[2023-09-29 14:40] LABS: HIV 1&2 SCREEN NEGATIVE (NEGATIVE)
[2023-09-29 14:48] LABS: HEPATITIS C VIRUS ABY INDEX < 0.02 INDEX (<0.8)
[2023-09-29 15:08] LABS: GC DNA AMPLIFICATION NEGATIVE (NEGATIVE)
== END ==
LOC: M PLALAB 10:59
PROVIDERS: ATTEND Advanced Practice Midwife
DX: Z34.81 Encounter for supervision of other normal pregnancy, first trimester (principal)

== ENCOUNTER → 2023-10-31 | Outpatient (REF) | payer OTHER | LOC: M PLALAB 12:38 | PROVIDERS: ATTEND Obstetrics & Gynecology | DX: R82.90 Unspecified abnormal findings in urine (principal) ==

== ENCOUNTER → 2023-11-14 | Outpatient (REF) | payer OTHER ==
[2023-11-15 10:45] LABS: APPEARANCE, URINE CLEAR (CLEAR); BACTERIA, URINE AUTO NEGATIVE (NEGATIVE); BILIRUBIN, URINE AUTO NEGATIVE (NEGATIVE); BLOOD, URINE BLOOD NEGATIVE (NEGATIVE); COLOR, URINE STRAW (YELLOW); GLUCOSE, URINE (UA) AUTO NEGATIVE (NEGATIVE); KETONE, URINE AUTO NEGATIVE (NEGATIVE); LEUKOCYTE ESTERASE, URINE AUTO NEGATIVE (NEGATIVE); NITRITE, URINE AUTO NEGATIVE (NEGATIVE); PROTEIN, URINE AUTO NEGATIVE (NEGATIVE); RBC, URINE AUTO 0 /HPF (0-3); SPECIFIC GRAVITY URINE AUTO 1.008 (1.002-1.035); SQUAMOUS EPITHELIAL CELL UR AU 2 /HPF (0-6); UROBILINOGEN, URINE AUTO 0.2 mg/dL (0.0-2.0); WBC, URINE AUTO 1 /HPF (0-3)
== END ==
LOC: M SFHCWAGY 09:40
PROVIDERS: ATTEND Advanced Practice Midwife
DX: R30.0 Dysuria (principal)

== ENCOUNTER → 2023-11-22 | Outpatient (CLI) | payer OTHER | LOC: M RAD 16:14 | PROVIDERS: ATTEND Obstetrics & Gynecology | DX: Z34.92 Encounter for supervision of normal pregnancy, unspecified, second trimester (principal) ==

== ENCOUNTER → 2024-01-09 | Outpatient (CLI) | payer OTHER ==
[2024-01-09 14:35] LABS: HEMATOCRIT 33.3 % (36.0-47.0); HEMOGLOBIN 11.2 g/dl (12.0-15.5); MEAN CORPUSCULAR HEMOGLOBIN 30.4 pg (27.0-33.0); MEAN CORPUSCULAR HGB CONC 33.6 g/dl (32.0-36.5); MEAN CORPUSCULAR VOLUME 90.5 fl (80.0-96.0); PLATELET COUNT, AUTOMATED 243 10^3/uL (150-450); RED BLOOD COUNT 3.68 10^6/uL (4.00-5.40)
[2024-01-09 15:58] LABS: GLUCOSE CHALLENGE TEST 1 HOUR 130 MG/DL (LESS THAN 140)
[2024-01-09 16:50] LABS: HIV 1&2 SCREEN NEGATIVE (NEGATIVE)
[2024-01-09 16:58] LABS: HEPATITIS C VIRUS ABY INDEX < 0.02 INDEX (<0.8)
== END ==
LOC: M PLALAB 09:03
PROVIDERS: ATTEND Advanced Practice Midwife
DX: O09.292 Supervision of pregnancy with other poor reproductive or obstetric history, second trimester (principal)

== ENCOUNTER → 2024-01-16 | Outpatient (CLI) | payer OTHER | LOC: M LAB 06:34 | PROVIDERS: ATTEND Advanced Practice Midwife | DX: R73.01 Impaired fasting glucose (principal) ==

== ENCOUNTER → 2024-03-12 | Outpatient (CLI) | payer OTHER ==
[2024-03-12 16:06] LABS: HEMATOCRIT 31.4 % (36.0-47.0); HEMOGLOBIN 10.4 g/dl (12.0-15.5); MEAN CORPUSCULAR HEMOGLOBIN 29.3 pg (27.0-33.0); MEAN CORPUSCULAR HGB CONC 33.1 g/dl (32.0-36.5); MEAN CORPUSCULAR VOLUME 88.5 fl (80.0-96.0); PLATELET COUNT, AUTOMATED 225 10^3/uL (150-450); RED BLOOD COUNT 3.55 10^6/uL (4.00-5.40); WHITE BLOOD COUNT 10.5 10^3/uL (4.0-10.0)
[2024-03-12 16:30] LABS: TOTAL PROTEIN,RANDOM URINE 14.9 MG/DL (0.0-14.0)
[2024-03-12 16:32] LABS: URIC ACID 4.6 MG/DL (3.1-7.8)
[2024-03-12 16:34] LABS: LDH LACTATE DEHYDROGENASE 158 U/L (120-246)
[2024-03-12 16:35] LABS: ALT/SGPT 10 U/L (7.0-40); AST/SGOT 13 U/L (<34); BILIRUBIN,TOTAL 0.4 MG/DL (0.3-1.2); CREATININE FOR GFR 0.62 MG/DL (0.55-1.30); CREATININE,RANDOM URINE 30.3 MG/DL; GLOMERULAR FILTRATION RATE > 60.0 (>60)
== END ==
LOC: M PLALAB 14:06
PROVIDERS: ATTEND Nurse Practitioner Family
DX: Z36.89 Encounter for other specified antenatal screening (principal); Z3A.36 36 weeks gestation of pregnancy

== ENCOUNTER 2024-03-24 07:43 | Inpatient (IN) | payer OTHER ==
[2024-03-24] VITALS (31 sets, daily range): BP systolic 92–130; BP diastolic 50–81
[~2024-03-24] VITALS: Ht 162.6 cm; Wt 87.7 kg
[2024-03-24] MEDS ORDERED: OXYTOCIN DRIP 30 UNITS in IV 1 EA IV PRN (08:00)
[2024-03-24] MEDS ORDERED: LIDOCAINE 1% MDV 20ML VIAL INFIL PRN (08:00)
[2024-03-24] MEDS ORDERED: ASPI81CH33 PO (08:03)
[2024-03-24] MEDS ORDERED: IRON65TA2 PO (08:03)
[2024-03-24] MEDS ORDERED: HOME MED LIST COMPLETE! XX SCH (08:05)
[2024-03-24] MEDS: miSOPROStol 50MCG 1/2 TABLET SL SCH (09:06)
[2024-03-24 09:23] LABS: HEMATOCRIT 31.7 % (36.0-47.0); HEMOGLOBIN 10.5 g/dl (12.0-15.5); MEAN CORPUSCULAR HEMOGLOBIN 28.5 pg (27.0-33.0); MEAN CORPUSCULAR HGB CONC 33.1 g/dl (32.0-36.5); MEAN CORPUSCULAR VOLUME 85.9 fl (80.0-96.0); PLATELET COUNT, AUTOMATED 223 10^3/uL (150-450); RED BLOOD COUNT 3.69 10^6/uL (4.00-5.40); WHITE BLOOD COUNT 9.9 10^3/uL (4.0-10.0)
[2024-03-24 10:20] LABS: HIV 1&2 SCREEN NEGATIVE (NEGATIVE)
[2024-03-24 10:28] LABS: HEPATITIS C VIRUS ABY INDEX < 0.02 INDEX (<0.8)
[2024-03-24] MEDS: ACETAMINOPHEN 500 MG TAB PO PRN (13:39)
[2024-03-24] MEDS: OXYTOCIN DRIP 30 UNITS in IV 1 EA IV SCH (22:15)
[2024-03-24] MEDS: LR 1,000 ML IV SCH (22:15)
[2024-03-24] MEDS ORDERED: ONDANSETRON 4MG 2ML VIAL IV PRN (23:05)
[2024-03-24] MEDS ORDERED: diphenhydrAMINE 50MG/ML VIAL IV PRN (23:05)
[2024-03-24] MEDS ORDERED: EPIDURAL/PCA KEYS XX PRN (23:05)
[2024-03-24] MEDS ORDERED: LR 500 ML IV PRN (23:05)
[2024-03-24] MEDS ORDERED: NALOXONE INJ 0.4MG/1ML VIAL IV PRN (23:05)
[2024-03-24] MEDS ORDERED: FENTANYL 2MCG/ML ROPIVACAINE 0.2% IN 0.9% NACL 100ML IVBAG As Ordered ONE (23:09)
[2024-03-24] MEDS: FENTANYL/ROPIVACAINE/NACL BAG 100 ML EPIDURAL SCH (23:31)
[2024-03-25] VITALS (27 sets, daily range): BP systolic 84–132; BP diastolic 48–78; O2SAT 99–100
[2024-03-25] MEDS: ePHEDrine SULFATE 25 MG/5 ML(5MG/ML) SYRINGE IVP PRN (00:13)
[2024-03-25] MEDS ORDERED: DOCUSATE SODIUM 100MG CAPSULE PO PRN (08:50)
[2024-03-25] MEDS ORDERED: RHOGAM 300MCG (1500IU) INJ IM SCH (08:50)
[2024-03-25] MEDS ORDERED: ACETAMINOPHEN 325 MG TAB PO PRN (08:50)
[2024-03-25] MEDS ORDERED: METHYLERGONOVINE MALEATE 0.2 MG TAB PO PRN (08:50)
[2024-03-25] MEDS: DIBUCAINE 1% OINTMENT 30GM TOP PRN (11:57)
[2024-03-25] MEDS: ACETAMINOPHEN 500 MG TAB PO PRN (11:57)
[2024-03-25] MEDS: IBUPROFEN 800 MG TAB PO PRN (15:02)
[2024-03-25] MEDS: IBUPROFEN 600MG TAB PO PRN (22:05)
[2024-03-26 06:00] VITALS: BP 107/68; O2SAT 100
[2024-03-26] MEDS: PRENATAL VITAMINS CHEWABLE TABLET PO SCH (08:49)
[2024-03-26] MEDS ORDERED: IBUP80TA PO (11:37)
[2024-03-26] MEDS ORDERED: ACET-683 PO (11:37)
[2024-03-27] MEDS ORDERED: MEASLES,MUMPS,RUBELLA VACCINE INJ (MMR-II) SC.IMMUN ONE (09:00)
== END 2024-03-26 13:05 | disposition home or self-care (01) | DRG 807 ==
LOC: M LDI 07:43 → M OBS 03-25 09:28
PROVIDERS: ADMIT Specialist; ATTEND Specialist
PROC: 3E0P7GC Introduction of Other Therapeutic Substance into Female Reproductive, Via Natural or Artificial Opening (ICD-10-PCS; 2024-03-24)
PROC: 10E0XZZ Delivery of Products of Conception, External Approach (ICD-10-PCS; principal; 2024-03-25)
PROC: 10907ZC Drainage of Amniotic Fluid, Therapeutic from Products of Conception, Via Natural or Artificial Opening (ICD-10-PCS; 2024-03-25)
DX: O14.94 Unspecified pre-eclampsia, complicating childbirth (principal); Z37.0 Single live birth; Z3A.38 38 weeks gestation of pregnancy; Z79.82 Long term (current) use of aspirin; Z79.899 Other long term (current) drug therapy; O69.81X0 Labor and delivery complicated by cord around neck, without compression, not applicable or unspecified